=== PATIENT | female | born 1970 | race Caucasian/White ===

== ENCOUNTER → 2017-01-12 | Outpatient (CLI) | payer BC ==
[~2017-01-12] MED LIST: DILAUDID2 MG PO; LORTAB 7.5-3251 EACH PO; MOTRIN800 MG PO; TYLENOL325 MG PO; VALIUM5 MG PO
== END | disposition disaster alternative care site (69) ==
LOC: LHSC 09:35
DX: M87.9 Osteonecrosis, unspecified (principal); M25.842 Other specified joint disorders, left hand; I96 Gangrene, not elsewhere classified